=== PATIENT | female | born 1930 | race Caucasian/White ===

== ENCOUNTER 2016-03-01 18:46 | Outpatient (CLI) | payer MEDICARE | END 2016-03-01 18:47 | disposition home or self-care (01) | LOC: HPCALD 18:46 | PROVIDERS: ATTEND Family Medicine | DX: R31.9 Hematuria, unspecified (principal); F99 Mental disorder, not otherwise specified | CPT/HCPCS: 87086 ==

== ENCOUNTER 2016-03-02 10:45 | Outpatient (CLI) | payer MEDICARE ==
[2016-03-02 11:45] LABS: #Basophils 0.1 thou/uL (0.0-0.2); #Eosinphils 0.4 thou/uL (0.0-0.7); #Lymphocytes 2.5 thou/uL (1.20-3.40); #Monocytes 0.7 thou/uL (0.11-0.59); #Neutrophils 3.9 thou/uL (1.40-6.50); %Basophils 1.5 % (0.0-1.0); %Eosinophils 4.7 % (0.0-10.0); %Monocytes 9.5 % (0.0-10.0); Hematocrit 41.1 % (36.0-47.0); Mean Platelet Volume 7.8 fL (7.4-10.4); White Blood Cell (WBC) Count 7.5 thou/uL (4.8-10.8)
[2016-03-02 11:54] LABS: ALT (SGPT) 22 U/L (0-55); AST (SGOT) 22 U/L (5-34); Alkaline Phosphatase 54 U/L (40-150); Anion Gap 13 mmol/L (10-20); BUN (Urea Nitrogen) 40 mg/dL (9.8-20.1); Bilirubin, Total 0.4 mg/dL (0.2-1.2); Calc. Creatinine Clearance 0 mL/min (70-130); Calcium 9.6 mg/dL (7.8-10.44); Carbon Dioxide 28 mmol/L (23-31); Chloride 107 mmol/L (98-107); Estimated GFR-MDRD 32; Globulin 2.6 g/dL (2.4-3.5); Protein, Total 6.8 g/dL (5.8-8.1)
[2016-03-02 13:49] LABS: Bilirubin Negative (Negative); Blood, Urine Negative (Negative); Glucose, Urine (Dipstick) Negative (Negative); Ketone, Urine Negative (Negative); Nitrite Negative (Negative); Protein, Urine (Dipstick) Negative (Neg-Trace); Urobilinogen 0.2 mg/dL (0.2-1.0)
[2016-03-02 14:14] LABS: RBC/HPF 0-3 HPF (0-3); WBC/HPF None Seen HPF (0-3)
[2016-03-02 14:15] LABS: Bacteria/HPF Rare-Few HPF (None Seen); Squamous Epithelial None Seen HPF (0-3)
== END 2016-03-02 10:46 | disposition home or self-care (01) ==
LOC: BURLAB 10:45
PROVIDERS: ATTEND Family Medicine
DX: I10 Essential (primary) hypertension (principal); R31.9 Hematuria, unspecified; F99 Mental disorder, not otherwise specified
CPT/HCPCS: 36415; 80053; 81001; 82607; 84443; 85025

== ENCOUNTER 2016-05-03 15:47 | Outpatient (CLI) | payer MEDICARE | END 2016-05-03 15:48 | LOC: HPCALD 15:47 | PROVIDERS: ATTEND Family Medicine | DX: R94.6 Abnormal results of thyroid function studies (principal) | CPT/HCPCS: 36415; 84439; 84443 ==

== ENCOUNTER 2016-05-16 10:25 | Emergency (ER) | payer MEDICARE ==
[2016-05-16 11:05] LABS: Bilirubin Negative (Negative); Blood, Urine Negative (Negative); Clarity Clear (Clear); Glucose, Urine (Dipstick) Negative (Negative); Leukocyte Negative (Negative); Nitrite Negative (Negative); Protein, Urine (Dipstick) Negative (Neg-Trace); Urobilinogen 0.2 mg/dL (0.2-1.0)
[2016-05-16 11:17] LABS: #Basophils 0.2 thou/uL (0.0-0.2); #Eosinphils 0.3 thou/uL (0.0-0.7); #Lymphocytes 2.5 thou/uL (1.20-3.40); #Monocytes 0.9 thou/uL (0.11-0.59); #Neutrophils 4.2 thou/uL (1.40-6.50); %Basophils 2.2 % (0.0-1.0); %Eosinophils 3.7 % (0.0-10.0); %Lymphocytes 31.3 % (21.0-51.0); %Monocytes 10.9 % (0.0-10.0); Hemoglobin 11.8 g/dL (12.0-16.0); Mean Corpuscular HGB CONC 31.5 g/dL (32.0-36.0); Mean Corpuscular Hemoglobin 31.5 pg (27.0-31.0); Mean Corpuscular Volume 99.9 fl (81.0-99.0); Mean Platelet Volume 7.7 fL (7.4-10.4); Platelet Count 216 thou/uL (130-400); RBC Distribution Width 12.5 % (11.5-14.5); Red Blood Cell (RBC) Count 3.75 mill/uL (4.20-5.40)
[2016-05-16 11:29] LABS: ALT (SGPT) 9 U/L (0-55); AST (SGOT) 20 U/L (5-34); Alkaline Phosphatase 49 U/L (40-150); Anion Gap 11 mmol/L (10-20); BUN (Urea Nitrogen) 29 mg/dL (9.8-20.1); Bilirubin, Total 0.6 mg/dL (0.2-1.2); Calc. Creatinine Clearance 0 mL/min (70-130); Calcium 9.4 mg/dL (7.8-10.44); Carbon Dioxide 29 mmol/L (23-31); Chloride 107 mmol/L (98-107); Estimated GFR-MDRD 40; Globulin 2.5 g/dL (2.4-3.5); Glucose 85 mg/dL (83-110); Potassium 4.5 mmol/L (3.5-5.1); Protein, Total 6.5 g/dL (5.8-8.1); Sodium 142 mmol/L (136-145)
[2016-05-16 11:35] LABS: CKMB 1.5 ng/mL (0-6.6); Troponin I Less than 0.010 ng/mL (< 0.028)
--- NOTE | 2016-05-16 21:16 | CT ---
CT OF THE BRAIN WITHOUT CONTRAST 05/16/2016 Comparison is made with the prior study dated 05/01/2016. No intracranial bleeding or extraaxial hematoma was seen. The calvarium appears intact, and the sph enoid sinus and mastoid air cells are clear. Diffuse atrophy is present with moderate compensatory dilatation of the ventricles. There has been no change in ventricular size since the prior exam. A few areas of deep white matter lucency is pro bably referable to chronic ischemic change. There is no sign of acute stroke or mass. IMPRESSION: Chronic changes but no acute findings. POS: HOME
--- NOTE | 2016-05-16 21:22 | RAD ---
RIGHT WRIST THREE VIEWS 05/16/2016 No major fracture was identified on this three-view study. However, on the lateral view, there is a faint suggestion of a ricardo of bone dorsally. This could be potentially a small avulsion from the dorsum of the triquetrum, age indeterminate. The findings should be correlated with the clinical ex am. If the patient had pain on the dorsum of the wrist, ulnar side, then the finding would take on additional meaning. The other carpal bones appear intact. There is some faint calcification in the triangular fibrocartilage. IMPRESSION: Question of tiny cortical avulsion from the dorsum of the triquetrum, age indeterminate. Correlate finding with any exact point of pain. Code T. POS: HOME
== END 2016-05-16 12:23 | disposition home or self-care (01) ==
LOC: BURERS 10:25
DX: S09.90XA Unspecified injury of head, initial encounter (principal); S60.211A Contusion of right wrist, initial encounter; S00.03XA Contusion of scalp, initial encounter; F03.90 Unspecified dementia, unspecified severity, without behavioral disturbance, psychotic disturbance, mood disturbance, and anxiety; M81.0 Age-related osteoporosis without current pathological fracture; Z87.442 Personal history of urinary calculi; Z79.82 Long term (current) use of aspirin; Z79.891 Long term (current) use of opiate analgesic; Z79.2 Long term (current) use of antibiotics; Z79.899 Other long term (current) drug therapy; W18.30XA Fall on same level, unspecified, initial encounter
CPT/HCPCS: 70450; 80053; 81003; 82553; 84484; 85025; 87086